=== PATIENT | male | born 1995 | race Hispanic/Latino ===

== ENCOUNTER 2020-06-26 07:59 | Inpatient (IN) | payer OTHER ==
[2020-06-26] MEDS ORDERED: SODIUM CHLORIDE 0.9% 1000 ML 1,000 ML IV ONE ×3 (08:24→12:10)
[2020-06-26 08:57] LABS: Mean Corpuscular HGB Conc 35 % (32-34); Mean Corpuscular Volume 86 fl (84-94); Red Blood Count 1.86 M/mm3 (3.65-5.03); Red Cell Distribution Width 17.2 % (13.2-15.2)
--- NOTE | 2020-06-26 08:59 | Emergency Department Report ---
ED Chest Pain HPI - General Chief Complaint: Chest Pain Stated Complaint: SVT Time Seen by Provider: 06/26/20 08:23 Source: EMS Mode of arrival: Stretcher Limitations: No Limitations - History of Present Illness Initial Comments: Patient is a 25-year-old male who is being brought in by paramedics from half-way who had episode of SVT prior to arrival. Patient is complaining of some palpitations and chest discomfort. Noted to have a heart rate in the 180s. Given 6 of adenosine which did seem to help the patient's symptoms. On his arrival heart rate is approximately 100. States he is has no chest pain or shortness of breath cough cold congestion fevers or chills. He has had SVT several times in the past and is on metoprolol currently. Additionally the patient states that over the last 3 weeks he has lost approximately 30 pounds. Patient states he was told something was going on with his liver but he does not have specific information. States he has had some dark-colored stools but is not sure there is been blood in his stool. - Related Data Allergies Allergy/AdvReac Type Severity Reaction Status Date / Time amoxicillin Allergy Unknown Verified 06/26/20 08:11 levetiracetam [From Keppra] Allergy Unknown Verified 06/26/20 08:11 sertraline [From Zoloft] Allergy Unknown Verified 06/26/20 08:11 Heart Score - HEART Score History: Slightly suspicious EKG: Normal Age: < 45 Risk factors: No known risk factors Troponin: < normal limit HEART Score: 0 ED Review of Systems ROS: Stated complaint: SVT Other details as noted in HPI Comment: All other systems reviewed and negative ED Past Medical Hx - Past Medical History Previous Medical History?: Yes Hx Seizures: Yes Additional medical history: Autism, SVT, Seizures - Social History Smoking Status: Never Smoker Substance Use Type: None ED Physical Exam - General Limitations: No Limitations General appearance: alert, in no apparent distress - Head Head exam: Present: atraumatic, normocephalic - Eye Eye exam: Present: normal appearance - ENT ENT exam: Present: mucous membranes moist - Neck Neck exam: Present: normal inspection - Respiratory Respiratory exam: Present: normal lung sounds bilaterally. Absent: respiratory distress, wheezes, rales, rhonchi - Cardiovascular Cardiovascular Exam: Present: regular rate, normal rhythm, normal heart sounds. Absent: systolic murmur, diastolic murmur, rubs, gallop - GI/Abdominal GI/Abdominal exam: Present: soft, normal bowel sounds. Absent: distended, tenderness, guarding, rebound - Rectal Rectal exam: Present: heme (-) stool - Extremities Exam Extremities exam: Present: normal inspection - Back Exam Back exam: Present: normal inspection - Neurological Exam Neurological exam: Present: alert, oriented X3 - Psychiatric Psychiatric exam: Present: normal affect, normal mood - Skin Skin exam: Present: warm, dry, intact, normal color. Absent: rash ED Course Vital Signs 06/26/20 06/26/20 06/26/20 08:04 08:06 08:12 Temperature 99 F Pulse Rate 110 H 112 H Respiratory 18 18 Rate Blood Pressure 103/64 Blood Pressure [Left] O2 Sat by Pulse 97 98 98 Oximetry 06/26/20 06/26/20 06/26/20 08:16 08:30 08:46 Temperature Pulse Rate 96 H 90 88 Respiratory 16 14 18 Rate Blood Pressure 103/64 103/66 93/41 Blood Pressure [Left] O2 Sat by Pulse 96 96 97 Oximetry 06/26/20 06/26/20 06/26/20 09:00 09:02 09:16 Temperature Pulse Rate 77 83 85 Respiratory 16 16 16 Rate Blood Pressure 89/51 98/63 Blood Pressure 89/53 [Left] O2 Sat by Pulse 100 98 99 Oximetry 06/26/20 06/26/20 06/26/20 09:30 09:46 10:00 Temperature Pulse Rate 80 74 85 Respiratory 15 14 10 L Rate Blood Pressure 103/70 105/63 111/60 Blood Pressure [Left] O2 Sat by Pulse 100 100 100 Oximetry 06/26/20 06/26/20 06/26/20 10:21 10:30 10:46 Temperature Pulse Rate 91 H 81 Respiratory 12 18 Rate Blood Pressure 105/61 105/61 108/63 Blood Pressure [Left] O2 Sat by Pulse 100 100 100 Oximetry 06/26/20 11:00 Temperature Pulse Rate 71 Respiratory 9 L Rate Blood Pressure 107/64 Blood Pressure [Left] O2 Sat by Pulse 89 Oximetry ED Medical Decision Making - Lab Data Result diagrams: 06/26/20 08:37 06/26/20 09:45 Laboratory Results - last 72 hr 06/26/20 06/26/20 06/26/20 08:37 08:37 09:26 WBC 3.5 L RBC 1.86 L Hgb 5.6 L* Hct 16.0 L* MCV 86 MCH 30 MCHC 35 H RDW 17.2 H Plt Count 75 L PT 28.5 H INR 2.67 H APTT 47.1 H Sodium 147 H Potassium 1.6 L* Chloride 128.4 H Carbon Dioxide 11 L Anion Gap 9 BUN 6 L Creatinine 0.3 L Estimated GFR > 60 BUN/Creatinine Ratio 20 Glucose 44 L POC Glucose Calcium 3.7 L* Total Bilirubin AST ALT Alkaline Phosphatase Troponin T < 0.010 Total Protein Albumin Albumin/Globulin Ratio Crossmatch 06/26/20 06/26/20 06/26/20 09:40 09:43 09:45 WBC RBC Hgb Hct MCV MCH MCHC RDW Plt Count PT INR APTT Sodium 139 D Potassium 3.8 D Chloride 108.3 H Carbon Dioxide 19 L D Anion Gap 16 BUN 12 Creatinine 0.9 D Estimated GFR > 60 BUN/Creatinine Ratio 13 Glucose 80 POC Glucose 65 L Calcium 8.8 D Total Bilirubin 0.80 AST 22 ALT 10 Alkaline Phosphatase 49 Troponin T Total Protein 6.1 L Albumin 4.0 Albumin/Globulin Ratio 1.9 Crossmatch See Detail - EKG Data -: EKG Interpreted by Pa EKG shows normal: sinus rhythm, axis, intervals, QRS complexes, ST-T waves Rate: normal - EKG Data Interpretation: normal EKG - Radiology Data Patient: WENDY ACUÑA MR#: [id number] : 1995 Acct:[id number] Age/Sex: 25 / M ADM Date: 06/26/20 Loc: ED Attending Dr: Ordering Physician: ALYSON HALE MD Date of Service: 06/26/20 Procedure(s): CT abdomen pelvis w con Accession Number(s): [id number] cc: ALYSON HALE MD CT OF THE ABDOMEN AND PELVIS WITH INTRAVENOUS CONTRAST INDICATION / CLINICAL INFORMATION: Abdominal pain. TECHNIQUE: The patient received 100 cc Omnipaque [address] scans at this location are performed using CT dose reduction for ALARA by means of automated exposure control. COMPARISON: None available. FINDINGS: ABDOMEN: The liver, spleen, gallbladder, bile ducts, pancreas, adrenal glands and kidneys are normal. There is no evidence of bowel obstruction, wall thickening or free air. No adenopathy is identified. The lung bases are clear. PELVIS: The distal ureters, urinary bladder, prostate gland and seminal vesicles are normal. A normal appendix is present and there is no evidence of diverticulitis. No abnormal mass or fluid collection is seen. I do not identify a hernia. No acute osseous abnormality is present. IMPRESSION: No acute abnormality is identified. Signer Name: Sanford Langford MD Signed: 06/26/2020 10:34 AM Workstation Name: [id number] Transcribed By: RT Dictated By: Sanford Langford MD Electronically Authenticated By: Sanford Langford MD Signed Date/Time: 06/26/20 1034 - Medical Decision Making Patient is a 25-year-old male who is presenting from nursing home with SVT. Patient also states that he was told he had some issue with his liver and that he has had a great deal of weight loss in the last several weeks. Patient SVT was corrected with adenosine prior to arrival. SVT was corrected with adenosine prior to arrival. Blood pressure was around 100 systolic and he was given IV fluids. Patient noted to have a low hemoglobin. His INR is elevated as well. Patient is not on blood thinners. Patient was Hemoccult negative. CT did not show any acute process. Patient had a unit of packed red blood cells ordered and will be admitted to the hospitalist service for further management. Critical care attestation.: If time is entered above; I have spent that time in minutes in the direct care of this critically ill patient, excluding procedure time. ED Disposition Clinical Impression: Symptomatic anemia, SVT (supraventricular tachycardia), Elevated INR Disposition: OP ADMIT IP TO THIS HOSP Is pt being admited?: Yes Does the pt Need Aspirin: No Condition: Stable Time of Disposition: 11:38
[2020-06-26 09:02] LABS: Platelet Count 75 K/mm3 (140-440)
[2020-06-26 09:03] LABS: Hemoglobin 5.6 gm/dl (11.8-15.2)
[2020-06-26] MEDS ORDERED: SODIUM CHLORIDE 0.9% 500 ML 500 ML IV ONE (09:09)
--- NOTE | 2020-06-26 09:17 | XRay Report ---
CHEST 1 VIEW 06/26/2020 8:10 AM INDICATION / CLINICAL INFORMATION: svt. COMPARISON: None available. FINDINGS: SUPPORT DEVICES: None. HEART / MEDIASTINUM: No significant abnormality. LUNGS / PLEURA: No significant pulmonary or pleural abnormality. No pneumothorax. ADDITIONAL FINDINGS: No significant additional findings. IMPRESSION: No acute abnormality. Signer Name: Chapo Cruz MD Signed: 06/26/2020 9:12 AM Workstation Name: [id number]
[2020-06-26 09:20] LABS: Blood Urea Nitrogen 6 mg/dL (9-20); Hemolysis Index 5
[2020-06-26 09:29] LABS: BUN/Creatinine Ratio 20
[2020-06-26 09:30] LABS: Calcium 3.7 mg/dL (8.4-10.2)
[2020-06-26] MEDS ORDERED: DEXTROSE 50% IN WATER (25GM) 50 ML SYRINGE IV ONE ×2 (09:40→09:43)
--- NOTE | 2020-06-26 10:19 | Electrocardiograph Report ---
[facility] Test Date: 2020-06-26 Test Time: 08:19:32 Pat Name: WENDY ACUÑA Department: Room: Gender: M Crew Caller: OMAR : 1995 Requested By: ALYSON HALE Order Number: [id number] Reading MD: Italo Damian Measurements Intervals [place] Rate: 92 P: 65 [place]: 166 QRS: 68 QRSD: 108 T: 6 QT: 347 QTc: 430 Interpretive Statements Sinus rhythm Probable lateral infarct, old No previous ECG available for comparison Electronically Signed On 06-26-2020 7:19:39 PDT by Italo Damian
[2020-06-26 10:27] LABS: INR 2.67 (0.87-1.13)
[2020-06-26 10:28] LABS: Partial Thromboplastin Time 47.1 Sec. (24.2-36.6)
[2020-06-26 10:30] LABS: Alanine Aminotransferase 10 units/L (7-56); BUN/Creatinine Ratio 13; Blood Urea Nitrogen 12 mg/dL (9-20); Calcium 8.8 mg/dL (8.4-10.2); Hemolysis Index 24
--- NOTE | 2020-06-26 10:39 | Cat Scan Report ---
CT OF THE ABDOMEN AND PELVIS WITH INTRAVENOUS CONTRAST INDICATION / CLINICAL INFORMATION: Abdominal pain. TECHNIQUE: The patient received 100 cc Omnipaque [address] scans at this location are performed using CT dose reduction for ALARA by means of automated exposure control. COMPARISON: None available. FINDINGS: ABDOMEN: The liver, spleen, gallbladder, bile ducts, pancreas, adrenal glands and kidneys are normal. There is no evidence of bowel obstruction, wall thickening or free air. No adenopathy is identified. The lung bases are clear. PELVIS: The distal ureters, urinary bladder, prostate gland and seminal vesicles are normal. A normal appendix is present and there is no evidence of diverticulitis. No abnormal mass or fluid collection is seen. I do not identify a hernia. No acute osseous abnormality is present. IMPRESSION: No acute abnormality is identified. Signer Name: Sanford Langford MD Signed: 06/26/2020 10:34 AM Workstation Name: [id number]
[2020-06-26] MEDS ORDERED: SODIUM CHLORIDE 0.9% 1000 ML 1,000 ML ONE (12:09)
[2020-06-26 14:13] LABS: Total Cells Counted 100
[2020-06-26 14:15] LABS: Platelet Estimate Consistent w Auto; RBC Morphology Normal
--- NOTE | 2020-06-26 14:44 | History and Physical Report ---
History of Present Illness Chief complaint: They brought me here History of present illness: 25 YO Male with Seizure Disorder, SVT, on the Autism spectrum presents to ED for evaluation. Pt reports " I was on the table and they brought me here". Patient has diminished cognition and provides minimal history. Patient history taken from EMS staff, ED staff, as well as the patient. The patient reports that he has "SVT", and was sent to the hospital. Patient also reports 30 pound weight loss in the past 1 month. EMS was notified by the [facility] staff and upon arrival the patient was found to be in SVT with a heart rate in the 180s. Patient treated with adenosine with normalization of patient heart rate. Patient transported to [facility] for further care and evaluation of the aforementioned symptoms. The patient was seen and evaluated in the emergency department. All lab and imaging studies reviewed. Patient found to have SVT with normalization of heart rate, as well as pancytopenia. Cardiology team consulted in ED. Hematology/oncology team consulted in ED as well. Patient denies fever, chills, chest pain, palpitation, productive cough, skin rash, recent ill contacts, or known exposure to COVID-19. No prior admission for review. All medication listed at time of admission has been reconciled. Past History Past Medical History: seizures, other (See HPI) Past Surgical History: No surgical history, Other (Reviewed) Social history: single. denies: smoking, alcohol abuse, prescription drug abuse Family history: no significant family history, other (Reviewed) Medications and Allergies Allergies Allergy/AdvReac Type Severity Reaction Status Date / Time amoxicillin Allergy Unknown Verified 06/26/20 08:11 levetiracetam [From Keppra] Allergy Unknown Verified 06/26/20 08:11 sertraline [From Zoloft] Allergy Unknown Verified 06/26/20 08:11 Home Medications Medication Instructions Recorded Confirmed Last Taken Type Docusate Sodium [Colace] 100 mg PO BID PRN 06/26/20 06/26/20 Unknown History Mag Citrate/Potassium Citrate 1 tab PO PRN PRN 06/26/20 06/26/20 Unknown History Metoprolol [Lopressor] 25 mg PO BID 06/26/20 06/26/20 Unknown History Omeprazole 20 mg PO DAILY 06/26/20 06/26/20 Unknown History Topiramate [Topamax] 50 mg PO DAILY 06/26/20 06/26/20 Unknown History lamoTRIgine [LaMICtal] 25 mg PO DAILY 06/26/20 06/26/20 Unknown History Review of Systems Constitutional: weight loss, no weight gain, no fever, no chills Ears, nose, mouth and throat: no ear pain, no ear discharge, no tinnitis, no d ecreased hearing Cardiovascular: no chest pain, no orthopnea, no palpitations, no rapid/irregular heart beat, no edema, no syncope Respiratory: no cough, no cough with sputum, no hemoptysis, no dyspnea on exertion Gastrointestinal: no abdominal pain, no nausea, no vomiting, no diarrhea, no constipation, no BRBPR, no melena Genitourinary Male: no hematuria, no flank pain, no discharge, no urinary h esitancy Rectal: no pain Musculoskeletal: no neck stiffness, no shooting arm pain, no arm numbness/tingling, no low back pain, no leg numbness/tingling Integumentary: no redness, no wounds, no jaundice, no blisters Neurological: no head injury, no transient paralysis, no weakness, no numbness, no seizures, no tremors, no lack of coordination Psychiatric: no memory loss, no change in sleep habits, no sleep disturbances, no hypersomnia, no change in appetite, no change in libido Endocrine: no cold intolerance, no excessive thirst, no polydipsia, no polyuria, no nocturia, no excessive sweating Hematologic/Lymphatic: no easy bruising, no easy bleeding, no lymphadenopathy, no lymphedema, no thrombophilia Allergic/Immunologic: no urticaria, no allergic rhinitis, no wheezing, no anaphylaxis, no angioedema Exam - Constitutional Vitals: Temp Pulse Resp BP Pulse Ox 99 F 54 L 15 118/78 100 06/26/20 08:06 06/26/20 14:30 06/26/20 14:30 06/26/20 14:30 06/26/20 14:30 General appearance: Present: mild distress, cachectic - EENT Eyes: Present: PERRL ENT: hearing intact, clear oral mucosa - Neck Neck: Present: supple, normal ROM - Respiratory Respiratory effort: normal Respiratory: bilateral: CTA - Cardiovascular Heart Sounds: Present: S1 & S2. Absent: rub, click - Extremities Extremities: pulses symmetrical, No edema Peripheral Pulses: within normal limits - Abdominal General gastrointestinal: Present: soft, non-tender, non-distended, normal bowel sounds Male genitourinary: Present: normal - Integumentary Integumentary: Present: clear, warm, dry - Musculoskeletal Musculoskeletal: gait normal, strength equal bilaterally - Psychiatric Psychiatric: cooperative - Neurologic Neurologic: CNII-XII intact, moves all extremities HEART Score - HEART Score EKG: Normal Age: < 45 Risk factors: No known risk factors Troponin: Troponin T < 0.010 ng/mL (0.00-0.029) 06/26/20 08:37 Troponin: < normal limit Results - Labs CBC & Chem 7: 06/26/20 15:40 06/26/20 09:45 Labs: Abnormal lab results 06/26/20 06/26/20 06/26/20 Range/Units 08:37 08:37 09:26 WBC 3.5 L (4.5-11.0) K/mm3 RBC 1.86 L (3.65-5.03) M/mm3 Hgb 5.6 L* (11.8-15.2) gm/dl Hct 16.0 L* (35.5-45.6) % MCHC 35 H (32-34) % RDW 17.2 H (13.2-15.2) % Plt Count 75 L (140-440) K/mm3 Seg Neuts % (Manual) 89.0 H (40.0-70.0) % Lymphocytes % (Manual) 11.0 L (13.4-35.0) % Lymphocytes # (Manual) 0.4 L (1.2-5.4) K/mm3 PT 28.5 H (12.2-14.9) Sec. INR 2.67 H (0.87-1.13) APTT 47.1 H (24.2-36.6) Sec. Fibrinogen (211-480) mg/dl Sodium 147 H (137-145) mmol/L Potassium 1.6 L* (3.6-5.0) mmol/L Chloride 128.4 H (98-107) mmol/L Carbon Dioxide 11 L (22-30) mmol/L BUN 6 L (9-20) mg/dL Creatinine 0.3 L (0.8-1.3) mg/dL Glucose 44 L (75-100) mg/dL POC Glucose (70-105) mg/dL Calcium 3.7 L* (8.4-10.2) mg/dL Total Protein (6.3-8.2) g/dL Crossmatch 06/26/20 06/26/20 06/26/20 Range/Units 09:40 09:43 09:45 WBC (4.5-11.0) K/mm3 RBC (3.65-5.03) M/mm3 Hgb (11.8-15.2) gm/dl Hct (35.5-45.6) % MCHC (32-34) % RDW (13.2-15.2) % Plt Count (140-440) K/mm3 Seg Neuts % (Manual) (40.0-70.0) % Lymphocytes % (Manual) (13.4-35.0) % Lymphocytes # (Manual) (1.2-5.4) K/mm3 PT (12.2-14.9) Sec. INR (0.87-1.13) APTT (24.2-36.6) Sec. Fibrinogen (211-480) mg/dl Sodium (137-145) mmol/L Potassium (3.6-5.0) mmol/L Chloride 108.3 H (98-107) mmol/L Carbon Dioxide 19 L D (22-30) mmol/L BUN (9-20) mg/dL Creatinine (0.8-1.3) mg/dL Glucose (75-100) mg/dL POC Glucose 65 L (70-105) mg/dL Calcium (8.4-10.2) mg/dL Total Protein 6.1 L (6.3-8.2) g/dL Crossmatch See Detail 06/26/20 Range/Units 13:52 WBC (4.5-11.0) K/mm3 RBC (3.65-5.03) M/mm3 Hgb (11.8-15.2) gm/dl Hct (35.5-45.6) % MCHC (32-34) % RDW (13.2-15.2) % Plt Count (140-440) K/mm3 Seg Neuts % (Manual) (40.0-70.0) % Lymphocytes % (Manual) (13.4-35.0) % Lymphocytes # (Manual) (1.2-5.4) K/mm3 PT (12.2-14.9) Sec. INR (0.87-1.13) APTT (24.2-36.6) Sec. Fibrinogen 203 L (211-480) mg/dl Sodium (137-145) mmol/L Potassium (3.6-5.0) mmol/L Chloride (98-107) mmol/L Carbon Dioxide (22-30) mmol/L BUN (9-20) mg/dL Creatinine (0.8-1.3) mg/dL Glucose (75-100) mg/dL POC Glucose (70-105) mg/dL Calcium (8.4-10.2) mg/dL Total Protein (6.3-8.2) g/dL Crossmatch Assessment and Plan - Patient Problems (1) SVT (supraventricular tachycardia) Current Visit: Yes Status: Acute Plan to address problem: Patient heart rate controlled status post treatment with adenosine therapy, continue medical management, supportive care. Cardiology team consulted in ED. Telemetry monitoring. (2) Pancytopenia Current Visit: Yes Status: Acute Plan to address problem: Supportive care, hematology oncology service consulted. Patient transfused with packed red blood cells, continue medical management. Fibrinogen level. (3) Elevated INR Current Visit: Yes Status: Acute Plan to address problem: Supportive care, hematology/oncology service consulted, continue medical management. (4) DVT prophylaxis Current Visit: Yes Status: Acute Plan to address problem: SCD to bilateral lower extremities while in bed, patient is ambulatory. Hold a nticoagulation due to thrombocytopenia
--- NOTE | 2020-06-26 15:15 | Hem/Onc Consultation ---
History of Present Illness - History of Present Illness heme consult televisit by vianca call be ER to eval pt with abn blood counts 25yo young man with autism, in custodial, eval last month with nl HCT and low plt count 80-100, nl coags now found to have cardiac arrythmia, found to have severe anemia, abn blood chemistries pt denies bleeding or bruising, no nosebleeds says he has lost a lot of weight EXAM: looks better than numbers not so talkative not jaundiced no obvious bruising Abd CT neg./normal DATA REVIEWED BELOW NOTE he has data from 05/2020 under a different mr number IMP: new pancytopenia, r/o acute leukemia abn coag studies with low fibrinogen, r/o APL leukemia PLAN: RBC transfusions, labs to include Retic, LDH, liver enzymes consider bone marrow biopsy head CT to r/o ICH Laboratory Last Values WBC 3.5 K/mm3 (4.5-11.0) L 06/26/20 08:37 Hgb 5.6 gm/dl (11.8-15.2) L* 06/26/20 08:37 Hct 16.0 % (35.5-45.6) L* 06/26/20 08:37 Plt Count 75 K/mm3 (140-440) L 06/26/20 08:37 Seg Neuts % (Manual) 89.0 % (40.0-70.0) H 06/26/20 08:37 PT 28.5 Sec. (12.2-14.9) H 06/26/20 09:26 INR 2.67 (0.87-1.13) H 06/26/20 09:26 APTT 47.1 Sec. (24.2-36.6) H 06/26/20 09:26 Fibrinogen 203 mg/dl (211-480) L 06/26/20 13:52 Creatinine 0.9 mg/dL (0.8-1.3) D 06/26/20 09:45 Total Bilirubin 0.80 mg/dL (0.1-1.2) 06/26/20 09:45 AST 22 units/L (5-40) 06/26/20 09:45 ALT 10 units/L (7-56) 06/26/20 09:45 Alkaline Phosphatase 49 units/L (35-129) 06/26/20 09:45 Crossmatch See Detail 06/26/20 09:43 Medications and Allergies Allergies Allergy/AdvReac Type Severity Reaction Status Date / Time amoxicillin Allergy Unknown Verified 06/26/20 08:11 levetiracetam [From Keppra] Allergy Unknown Verified 06/26/20 08:11 sertraline [From Zoloft] Allergy Unknown Verified 06/26/20 08:11 Home Medications Medication Instructions Recorded Confirmed Last Taken Type Docusate Sodium [Colace] 100 mg PO BID PRN 06/26/20 06/26/20 Unknown History Mag Citrate/Potassium Citrate 1 tab PO PRN PRN 06/26/20 06/26/20 Unknown History Metoprolol [Lopressor] 25 mg PO BID 06/26/20 06/26/20 Unknown History Omeprazole 20 mg PO DAILY 06/26/20 06/26/20 Unknown History Topiramate [Topamax] 50 mg PO DAILY 06/26/20 06/26/20 Unknown History lamoTRIgine [LaMICtal] 25 mg PO DAILY 06/26/20 06/26/20 Unknown History Exam - Constitutional Vitals: Last Vital Signs Temp 99 F 06/26/20 08:06 Pulse 58 L 06/26/20 15:02 Resp 16 06/26/20 15:02 BP 98/58 06/26/20 15:02 Pulse Ox 98 06/26/20 15:02 Results - Labs lab Results: Laboratory Results - last 24 hr 06/26/20 06/26/20 06/26/20 08:37 08:37 09:26 WBC 3.5 L RBC 1.86 L Hgb 5.6 L* Hct 16.0 L* MCV 86 MCH 30 MCHC 35 H RDW 17.2 H Plt Count 75 L Add Manual Diff Complete Total Counted 100 Seg Neuts % (Manual) 89.0 H Lymphocytes % (Manual) 11.0 L Nucleated RBC % Not Reportable Seg Neutrophils # Man 3.1 Band Neutrophils # 0.0 Lymphocytes # (Manual) 0.4 L Abs React Lymphs (Man) 0.0 Monocytes # (Manual) 0.0 Eosinophils # (Manual) 0.0 Basophils # (Manual) 0.0 Metamyelocytes # 0.0 Myelocytes # 0.0 Promyelocytes # 0.0 Blast Cells # 0.0 WBC Morphology Not Reportable Hypersegmented Neuts Not Reportable Hyposegmented Neuts Not Reportable Hypogranular Neuts Not Reportable Smudge Cells Not Reportable Toxic Granulation Not Reportable Toxic Vacuolation Not Reportable Dohle Bodies Not Reportable Pelger-Huet Anomaly Not Reportable Brenda Rods Not Reportable Platelet Estimate Consistent w auto Clumped Platelets Not Reportable Plt Clumps, EDTA Not Reportable Large Platelets Not Reportable Giant Platelets Not Reportable Platelet Satelliting Not Reportable Plt Morphology Comment Not Reportable RBC Morphology Normal Dimorphic RBCs Not Reportable Polychromasia Not Reportable Hypochromasia Not Reportable Poikilocytosis Not Reportable Anisocytosis Not Reportable Microcytosis Not Reportable Macrocytosis Not Reportable Spherocytes Not Reportable Pappenheimer Bodies Not Reportable Sickle Cells Not Reportable Target Cells Not Reportable Tear Drop Cells Not Reportable Ovalocytes Not Reportable Helmet Cells Not Reportable [place] Bodies Not Reportable [place] Rings Not Reportable Alba Cells Not Reportable Bite Cells Not Reportable Crenated Cell Not Reportable Elliptocytes Not Reportable Acanthocytes (Spur) Not Reportable Rouleaux Not Reportable Hemoglobin C Crystals Not Reportable Schistocytes Not Reportable Malaria parasites Not Reportable Shane Bodies Not Reportable Hem Pathologist Commnt No PT 28.5 H INR 2.67 H APTT 47.1 H Fibrinogen Sodium 147 H Potassium 1.6 L* Chloride 128.4 H Carbon Dioxide 11 L Anion Gap 9 BUN 6 L Creatinine 0.3 L Estimated GFR > 60 BUN/Creatinine Ratio 20 Glucose 44 L POC Glucose Calcium 3.7 L* Total Bilirubin AST ALT Alkaline Phosphatase Troponin T < 0.010 Total Protein Albumin Albumin/Globulin Ratio Blood Type Crossmatch 06/26/20 06/26/20 06/26/20 09:40 09:43 09:45 WBC RBC Hgb Hct MCV MCH MCHC RDW Plt Count Add Manual Diff Total Counted Seg Neuts % (Manual) Lymphocytes % (Manual) Nucleated RBC % Seg Neutrophils # Man Band Neutrophils # Lymphocytes # (Manual) Abs React Lymphs (Man) Monocytes # (Manual) Eosinophils # (Manual) Basophils # (Manual) Metamyelocytes # Myelocytes # Promyelocytes # Blast Cells # WBC Morphology Hypersegmented Neuts Hyposegmented Neuts Hypogranular Neuts Smudge Cells Toxic Granulation Toxic Vacuolation Dohle Bodies Pelger-Huet Anomaly Brenda Rods Platelet Estimate Clumped Platelets Plt Clumps, EDTA Large Platelets Giant Platelets Platelet Satelliting Plt Morphology Comment RBC Morphology Dimorphic RBCs Polychromasia Hypochromasia Poikilocytosis Anisocytosis Microcytosis Macrocytosis Spherocytes Pappenheimer Bodies Sickle Cells Target Cells Tear Drop Cells Ovalocytes Helmet Cells [place] Bodies [place] Rings Alba Cells Bite Cells Crenated Cell Elliptocytes Acanthocytes (Spur) Rouleaux Hemoglobin C Crystals Schistocytes Malaria parasites Shane Bodies Hem Pathologist Commnt PT INR APTT Fibrinogen Sodium 139 D Potassium 3.8 D Chloride 108.3 H Carbon Dioxide 19 L D Anion Gap 16 BUN 12 Creatinine 0.9 D Estimated GFR > 60 BUN/Creatinine Ratio 13 Glucose 80 POC Glucose 65 L Calcium 8.8 D Total Bilirubin 0.80 AST 22 ALT 10 Alkaline Phosphatase 49 Troponin T Total Protein 6.1 L Albumin 4.0 Albumin/Globulin Ratio 1.9 Blood Type B NEGATIVE Crossmatch See Detail 06/26/20 13:52 WBC RBC Hgb Hct MCV MCH MCHC RDW Plt Count Add Manual Diff Total Counted Seg Neuts % (Manual) Lymphocytes % (Manual) Nucleated RBC % Seg Neutrophils # Man Band Neutrophils # Lymphocytes # (Manual) Abs React Lymphs (Man) Monocytes # (Manual) Eosinophils # (Manual) Basophils # (Manual) Metamyelocytes # Myelocytes # Promyelocytes # Blast Cells # WBC Morphology Hypersegmented Neuts Hyposegmented Neuts Hypogranular Neuts Smudge Cells Toxic Granulation Toxic Vacuolation Dohle Bodies Pelger-Huet Anomaly Brenda Rods Platelet Estimate Clumped Platelets Plt Clumps, EDTA Large Platelets Giant Platelets Platelet Satelliting Plt Morphology Comment RBC Morphology Dimorphic RBCs Polychromasia Hypochromasia Poikilocytosis Anisocytosis Microcytosis Macrocytosis Spherocytes Pappenheimer Bodies Sickle Cells Target Cells Tear Drop Cells Ovalocytes Helmet Cells [place] Bodies [place] Rings Alba Cells Bite Cells Crenated Cell Elliptocytes Acanthocytes (Spur) Rouleaux Hemoglobin C Crystals Schistocytes Malaria parasites Shane Bodies Hem Pathologist Commnt PT INR APTT Fibrinogen 203 L Sodium Potassium Chloride Carbon Dioxide Anion Gap BUN Creatinine Estimated GFR BUN/Creatinine Ratio Glucose POC Glucose Calcium Total Bilirubin AST ALT Alkaline Phosphatase Troponin T Total Protein Albumin Albumin/Globulin Ratio Blood Type Crossmatch
[2020-06-26 15:23] LABS: Bilirubin,Urine NEG (Negative); Blood,Urine NEG (Negative); Color,Urine Yellow (Yellow); Mucus,Urine FEW /HPF; Protein,Urine <15 mg/dL mg/dL (Negative); Urobilinogen,Urine < 2.0 mg/dL (<2.0)
[2020-06-26 16:04] LABS: Basophils % (Auto) 0.2 % (0.0-1.8); Eosinophils % (Auto) 0.5 % (0.0-4.3); Hematocrit 40.1 % (35.5-45.6); Hemoglobin 14.2 gm/dl (11.8-15.2); Lymphocytes # (Auto) 2.3 K/mm3 (1.2-5.4); Lymphocytes % (Auto) 38.2 % (13.4-35.0); Mean Corpuscular HGB Conc 35 % (32-34); Mean Corpuscular Volume 85 fl (84-94); Monocytes # (Auto) 0.5 K/mm3 (0.0-0.8); Monocytes % (Auto) 7.4 % (0.0-7.3); Platelet Count 179 K/mm3 (140-440); Red Blood Count 4.71 M/mm3 (3.65-5.03); Red Cell Distribution Width 17.7 % (13.2-15.2)
[2020-06-26] MEDS ORDERED: ALBUTEROL 2.5 MG/3 ML NEBU IH PRN (16:42)
[2020-06-26] MEDS ORDERED: ACETAMINOPHEN 325 MG TAB PO PRN (16:42)
[2020-06-26] MEDS ORDERED: ONDANSETRON 4 MG/2 ML INJ IV PRN (16:42)
[2020-06-26] MEDS ORDERED: POTASSIUM CITRATE PO PRN (16:44)
[2020-06-26] MEDS ORDERED: DOCUSATE SODIUM 100 MG CAP PO PRN (16:44)
[2020-06-26] MEDS ORDERED: MAGNESIUM CITRATE PO PRN (16:44)
--- NOTE | 2020-06-26 17:00 | Cat Scan Report ---
CT head/brain wo con INDICATION: Acute leukemia.. TECHNIQUE: Routine CT head without contrast. All CT scans at this location are performed using CT dos e reduction for ALARA by means of automated exposure control. COMPARISON: 05/18/[address] FINDINGS: BRAIN / INTRACRANIAL CONTENTS: No acute hemorrhage, mass effect, midline shift, or hydrocephalus. No appreciable acute large territorial or lacunar infarct. No chronic infarct or focal atrophy. Normal b rain volume and ventricular/sulcal size for age. ORBITS: No significant abnormality of visualized orbits. SINUSES / MASTOIDS: No significant abnormality of visualized sinuses and mastoid air cells. ADDITIONAL FINDINGS: None. IMPRESSION: 1. No acute intracranial abnormality. No adverse change from the prior exam. Signer Name: Karthik Foster MD Signed: 06/26/2020 4:55 PM Workstation Name: [id number]
[2020-06-26 19:34] LABS: Basophils % (Auto) 0.2 % (0.0-1.8); Hematocrit 38.4 % (35.5-45.6); Hemoglobin 13.1 gm/dl (11.8-15.2); Lymphocytes # (Auto) 2.2 K/mm3 (1.2-5.4); Lymphocytes % (Auto) 45.5 % (13.4-35.0); Mean Corpuscular HGB Conc 34 % (32-34); Mean Corpuscular Volume 85 fl (84-94); Monocytes # (Auto) 0.4 K/mm3 (0.0-0.8); Monocytes % (Auto) 8.4 % (0.0-7.3); Platelet Count 157 K/mm3 (140-440); Red Blood Count 4.51 M/mm3 (3.65-5.03); Red Cell Distribution Width 17.9 % (13.2-15.2)
[2020-06-26 19:54] LABS: Alanine Aminotransferase 10 units/L (7-56); Blood Urea Nitrogen 8 mg/dL (9-20); Calcium 8.8 mg/dL (8.4-10.2); Hemolysis Index 10
[2020-06-26 19:59] LABS: BUN/Creatinine Ratio 11
[2020-06-27] MEDS ORDERED: LORazepam 2 MG/ML VIAL ONE (02:10)
[2020-06-27] MEDS: LORazepam 2 MG/ML VIAL IV PRN ×3 (03:00→20:20)
[2020-06-27] MEDS ORDERED: HALOPERIDOL LACTATE 5 MG/1 ML INJ IM ONE ×2 (03:30→21:11)
[2020-06-27] MEDS ORDERED: HALOPERIDOL LACTATE 5 MG/1 ML INJ ONE (03:31)
[2020-06-27] MEDS ORDERED: diazePAM 10 MG/2 ML SYRINGE IV ONE (03:47)
--- NOTE | 2020-06-27 04:26 | Event Note ---
Date: 06/27/20 PATIENT NOTED TO BE HAVING RECURRENT SEIZURE ATTACK DESPITE I.V ATIVAN , HE WAS ALSO HAVING AGITATION AND TACHYCARDIA. I.V HALDOL 5MG WAS GIVEN AND PATIENT'S SYMPTOM RESOLVED COMPLETELY. PATIENT WAS TRANSFERED TO ICU FOR CLOSER MORNITORING
[2020-06-27 05:42] LABS: Basophils % (Auto) 0.3 % (0.0-1.8); Eosinophils % (Auto) 0.4 % (0.0-4.3); Hematocrit 36.2 % (35.5-45.6); Hemoglobin 12.7 gm/dl (11.8-15.2); Lymphocytes # (Auto) 2.3 K/mm3 (1.2-5.4); Mean Corpuscular HGB Conc 35 % (32-34); Mean Corpuscular Volume 84 fl (84-94); Monocytes # (Auto) 0.5 K/mm3 (0.0-0.8); Monocytes % (Auto) 6.8 % (0.0-7.3); Platelet Count 142 K/mm3 (140-440); Red Blood Count 4.32 M/mm3 (3.65-5.03); Red Cell Distribution Width 18.1 % (13.2-15.2)
[2020-06-27 06:24] LABS: Alanine Aminotransferase 10 units/L (7-56); Albumin 3.9 g/dL (3.9-5); BUN/Creatinine Ratio 13; Blood Urea Nitrogen 9 mg/dL (9-20); Calcium 9.1 mg/dL (8.4-10.2); Hemolysis Index 4
--- NOTE | 2020-06-27 09:24 | Consultation ---
History of Present Illness - Reason for Consult Consult date: 06/27/20 Seizures Requesting physician: ANTON WARD - History of Present Illness 25 y/o male, transferred from tele after being admitted for SVT. Per covering IMS doc, patient having back to back seizures so transferred to ICU. He is currently not seizing and not on continuous drips. Stable on room air. Will answer most questions but very very sleepy. Guard at bedside. Per patient has been locked up for about 4 months. The chart states that he has a 30lb weight loss in the last month. There was concern for hematologic disorder so heme consulted and saw via tele medicine. Head CT was unremarkable. Per patient takes depakote but states the [facility] was not telling him what meds he was taking. Remainder is negative. Past History Past Medical History: seizures, other (See HPI) Past Surgical History: No surgical history, Other (Reviewed) Social history: single. denies: smoking, alcohol abuse, prescription drug abuse Family history: no significant family history, other (Reviewed) Medications and Allergies Allergies Allergy/AdvReac Type Severity Reaction Status Date / Time amoxicillin Allergy Unknown Verified 06/26/20 08:11 levetiracetam [From Keppra] Allergy Unknown Verified 06/26/20 08:11 sertraline [From Zoloft] Allergy Unknown Verified 06/26/20 08:11 Home Medications Medication Instructions Recorded Confirmed Last Taken Type Docusate Sodium [Colace] 100 mg PO BID PRN 06/26/20 06/26/20 Unknown History Mag Citrate/Potassium Citrate 1 tab PO PRN PRN 06/26/20 06/26/20 Unknown History Metoprolol [Lopressor] 25 mg PO BID 06/26/20 06/26/20 Unknown History Omeprazole 20 mg PO DAILY 06/26/20 06/26/20 Unknown History Topiramate [Topamax] 50 mg PO DAILY 06/26/20 06/26/20 Unknown History lamoTRIgine [LaMICtal] 25 mg PO DAILY 06/26/20 06/26/20 Unknown History Active Meds: Active Medications Acetaminophen (Acetaminophen 325 Mg Tab) 650 mg PO Q4H PRN PRN Reason: Pain MILD(1-3)/Fever >100.5/BROWN Albuterol (Albuterol 2.5 Mg/3 Ml Nebu) 2.5 mg IH Q4HRT PRN PRN Reason: Shortness Of Breath Docusate Sodium (Docusate Sodium 100 Mg Cap) 100 mg PO BID PRN PRN Reason: Constipation Lamotrigine (Lamotrigine 25 Mg Tab) 25 mg PO DAILY [facility] Lorazepam (Lorazepam 2 Mg/Ml Vial) 1 mg IV Q2HR PRN PRN Reason: seizures Last Admin: 06/27/20 03:37 Dose: 1 mg Documented by: Ondansetron HCl (Ondansetron 4 Mg/2 Ml Inj) 4 mg IV Q8H PRN PRN Reason: Nausea And Vomiting Pantoprazole Sodium (Pantoprazole 20 Mg Tab) 20 mg PO QDAY [facility] Sodium Chloride (Sodium Chloride 0.9% 10 Ml Flush Syringe) 10 ml IV BID BENJI Last Admin: 06/26/20 22:44 Dose: 10 ml Documented by: Sodium Chloride (Sodium Chloride 0.9% 10 Ml Flush Syringe) 10 ml IV PRN PRN PRN Reason: LINE FLUSH Topiramate (Topiramate Tab 25 Mg Tab) 50 mg PO DAILY [facility] Review of Systems ROS unobtainable: due to mental status Exam - Constitutional Vitals: Temp Pulse Resp BP Pulse Ox 98.9 F 48 L 14 98/55 100 06/27/20 08:00 06/27/20 09:01 06/27/20 09:01 06/27/20 09:01 06/27/20 09:01 General appearance: Present: no acute distress, well-nourished - EENT ENT: hearing intact - Neck Neck: Present: supple, normal ROM - Respiratory Respiratory effort: normal Respiratory: bilateral: CTA - Cardiovascular Rhythm: regular Heart Sounds: Present: S1 & S2 - Extremities Extremities: no ischemia, pulses intact Results - Labs CBC & Chem 7: 06/27/20 05:14 06/27/20 05:14 Labs: Abnormal lab results 06/26/20 06/26/20 06/26/20 Range/Units 08:37 08:37 09:26 MCHC (32-34) % RDW (13.2-15.2) % Lymph % (Auto) (13.4-35.0) % Young % (Auto) (0.0-7.3) % Seg Neuts % (Manual) 89.0 H (40.0-70.0) % Lymphocytes % (Manual) 11.0 L (13.4-35.0) % Lymphocytes # (Manual) 0.4 L (1.2-5.4) K/mm3 PT 28.5 H (12.2-14.9) Sec. INR 2.67 H (0.87-1.13) APTT 47.1 H (24.2-36.6) Sec. Fibrinogen (211-480) mg/dl Sodium 147 H (137-145) mmol/L Potassium 1.6 L* (3.6-5.0) mmol/L Chloride 128.4 H (98-107) mmol/L Carbon Dioxide 11 L (22-30) mmol/L BUN 6 L (9-20) mg/dL Creatinine 0.3 L (0.8-1.3) mg/dL Glucose 44 L (75-100) mg/dL POC Glucose (70-105) mg/dL Calcium 3.7 L* (8.4-10.2) mg/dL Lactate Dehydrogenase (91-180) units/L Total Protein (6.3-8.2) g/dL Ur Specific [place] (1.003-1.030) Urine WBC (Auto) (0.0-6.0) /HPF Crossmatch 06/26/20 06/26/20 06/26/20 Range/Units 09:40 09:43 09:45 MCHC (32-34) % RDW (13.2-15.2) % Lymph % (Auto) (13.4-35.0) % Young % (Auto) (0.0-7.3) % Seg Neuts % (Manual) (40.0-70.0) % Lymphocytes % (Manual) (13.4-35.0) % Lymphocytes # (Manual) (1.2-5.4) K/mm3 PT (12.2-14.9) Sec. INR (0.87-1.13) APTT (24.2-36.6) Sec. Fibrinogen (211-480) mg/dl Sodium (137-145) mmol/L Potassium (3.6-5.0) mmol/L Chloride 108.3 H (98-107) mmol/L Carbon Dioxide 19 L D (22-30) mmol/L BUN (9-20) mg/dL Creatinine (0.8-1.3) mg/dL Glucose (75-100) mg/dL POC Glucose 65 L (70-105) mg/dL Calcium (8.4-10.2) mg/dL Lactate Dehydrogenase (91-180) units/L Total Protein 6.1 L (6.3-8.2) g/dL Ur Specific [place] (1.003-1.030) Urine WBC (Auto) (0.0-6.0) /HPF Crossmatch See Detail 06/26/20 06/26/20 06/26/20 Range/Units 12:32 13:52 15:40 MCHC 35 H (32-34) % RDW 17.7 H (13.2-15.2) % Lymph % (Auto) 38.2 H (13.4-35.0) % Young % (Auto) 7.4 H (0.0-7.3) % Seg Neuts % (Manual) (40.0-70.0) % Lymphocytes % (Manual) (13.4-35.0) % Lymphocytes # (Manual) (1.2-5.4) K/mm3 PT (12.2-14.9) Sec. INR (0.87-1.13) APTT (24.2-36.6) Sec. Fibrinogen 203 L (211-480) mg/dl Sodium (137-145) mmol/L Potassium (3.6-5.0) mmol/L Chloride (98-107) mmol/L Carbon Dioxide (22-30) mmol/L BUN (9-20) mg/dL Creatinine (0.8-1.3) mg/dL Glucose (75-100) mg/dL POC Glucose (70-105) mg/dL Calcium (8.4-10.2) mg/dL Lactate Dehydrogenase (91-180) units/L Total Protein (6.3-8.2) g/dL Ur Specific [place] 1.045 H (1.003-1.030) Urine WBC (Auto) 36.0 H (0.0-6.0) /HPF Crossmatch 06/26/20 06/26/20 06/26/20 Range/Units 15:40 19:24 19:24 MCHC (32-34) % RDW 17.9 H (13.2-15.2) % Lymph % (Auto) 45.5 H (13.4-35.0) % Young % (Auto) 8.4 H (0.0-7.3) % Seg Neuts % (Manual) (40.0-70.0) % Lymphocytes % (Manual) (13.4-35.0) % Lymphocytes # (Manual) (1.2-5.4) K/mm3 PT (12.2-14.9) Sec. INR (0.87-1.13) APTT (24.2-36.6) Sec. Fibrinogen (211-480) mg/dl Sodium (137-145) mmol/L Potassium (3.6-5.0) mmol/L Chloride 108.9 H (98-107) mmol/L Carbon Dioxide 20 L (22-30) mmol/L BUN 8 L (9-20) mg/dL Creatinine 0.7 L (0.8-1.3) mg/dL Glucose 115 H (75-100) mg/dL POC Glucose (70-105) mg/dL Calcium (8.4-10.2) mg/dL Lactate Dehydrogenase 525 H (91-180) units/L Total Protein 5.6 L (6.3-8.2) g/dL Ur Specific [place] (1.003-1.030) Urine WBC (Auto) (0.0-6.0) /HPF Crossmatch 06/27/20 06/27/20 06/27/20 Range/Units 05:14 05:14 05:14 MCHC 35 H (32-34) % RDW 18.1 H (13.2-15.2) % Lymph % (Auto) (13.4-35.0) % Young % (Auto) (0.0-7.3) % Seg Neuts % (Manual) (40.0-70.0) % Lymphocytes % (Manual) (13.4-35.0) % Lymphocytes # (Manual) (1.2-5.4) K/mm3 PT (12.2-14.9) Sec. INR (0.87-1.13) APTT (24.2-36.6) Sec. Fibrinogen 209 L (211-480) mg/dl Sodium (137-145) mmol/L Potassium (3.6-5.0) mmol/L Chloride 110.6 H (98-107) mmol/L Carbon Dioxide (22-30) mmol/L BUN (9-20) mg/dL Creatinine 0.7 L (0.8-1.3) mg/dL Glucose (75-100) mg/dL POC Glucose (70-105) mg/dL Calcium (8.4-10.2) mg/dL Lactate Dehydrogenase (91-180) units/L Total Protein 5.6 L (6.3-8.2) g/dL Ur Specific [place] (1.003-1.030) Urine WBC (Auto) (0.0-6.0) /HPF Crossmatch - Imaging and Cardiology Chest x-ray: image reviewed (normal, no evidence of acute disease) Assessment and Plan 25 y/o male admitted with sVT and prior history of seizures with seizures on floor. 1. Some descrepancy as to whether meds were given or not for maintenance therapy for seizures. Will restart now. OK with PRN ativan when needed. Currently mental state is stable so no acute indication for EEG. 2. Continue telemetry monitoring. Follow up electrolytes and thyroid studies. 3. Will monitor until early afternoon. If stable, transfer back to [facility].
[2020-06-27] MEDS: TOPIRAMATE TAB 25 MG TAB PO SCH (09:25)
[2020-06-27] MEDS: PANTOPRAZOLE 20 MG TAB PO SCH (09:25)
[2020-06-27] MEDS: lamoTRIgine 25 MG TAB PO SCH (09:26)
[2020-06-27] MEDS ORDERED: NON-FORMULARY EACH (Omeprazole [Omeprazole] 20 MG Capsule.Dr) PO SCH (10:00)
[2020-06-27] MEDS ORDERED: NON-FORMULARY EACH (Topiramate [Topamax] 50 MG Tablet) PO SCH (10:00)
[2020-06-27] MEDS ORDERED: LACTATED RINGERS 1,000 ML IV SCH (10:00)
--- NOTE | 2020-06-27 13:18 | Event Note ---
Date: 06/27/20 Patient was seen and evaluated this morning. Vital signs and labs were noted. Patient admitted for pseudoseizures. 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 Received and reviewed his chart, His BP was low and is on NS. patient will be discharged tomorrow. Discussed With CHRISTIAN Mendoza.
--- NOTE | 2020-06-27 15:08 | Progress Note ---
Assessment and Plan Assessment and plan: SVT -S/p adenosine -Noted to be in sinus rhythm with periods of sinus bradycardia with sleep -Telemetry monitoring -Cardiology consulted, appreciate recommendations -Hold home beta-charlie in setting of sinus bradycardia with sleep and hypotension -TSH pending Psychogenic nonepileptic seizures (per OSH records) -Patient received EEG monitoring in 2016, 2019 and thousand 20 and was not noted to have status epilepticus -Per OSH [place] neurology diagnosed patient with PNES and recommended no AEDs -Supportive care Elevated INR -Trend INR -Intervene as needed Hyperchloremia Trend BMP Hypotension -S/p 2 L LR bolus -Blood pressure monitoring per protocol -Hold home beta-charlie in setting of hypotension Reactive attachment disorder per OSH records -Resume home Topamax -Supportive care ? Autism spectrum -Supportive care Pancytopenia, resolved -Patient's initial labs showed pancytopenia with WBC 3.5, hemoglobin 5.6, hematocrit 16, platelet count 75 and the patient was typed and crossed for blood however never received his transfusion -Next CBC shows WBC 6.1, hemoglobin 14.2, hematocrit 40.1, platelet 179 -Hematology/oncology consulted emergency department -Per heme-onc plan: RBC transfusion, reticulocyte, LDH, LFTs, consider bone marrow biopsy, repeat CT head to rule out ICH which was negative DVT/GI prophylaxis: PPI, SCDs to bilateral lower extremities while in bed Disposition: Transfer to floor with telemetry monitoring History Interval history: This is a 25-year-old male with psychogenic nonepileptic seizures, SVT, reactive attachment disorder and on the autism spectrum who presented to the ED on 06/26 for SVT and self-reported 30 pound weight loss in the past month. According to documentation patient was given adenosine in the halfway informatory. Upon arrival to the emergency department patient was found to have SVT with normalization of heart rate as well as pancytopenia. Cardiology and hematology/oncology were consulted the emergency department. 06/27: Patient was noted to have seizures and was given Ativan for seizure which lasted close to 13 minutes then at about 0300 patient was noted to have another seizure for 5 minutes Ativan was given again and then around 0330 patient was noted to have another seizure and a code met was called. Patient received Haldol at this time and was transferred to the unit. SVT Pancytopenia, resolved Elevated INR Psychogenic nonepileptic seizures (per OSH records) Autism spectrum Hyperchloremia Hypotension Hospitalist Physical - Constitutional Vitals: Temp Pulse Resp BP Pulse Ox 97.4 F L 48 L 16 101/38 99 06/27/20 11:57 06/27/20 13:31 06/27/20 13:31 06/27/20 13:31 06/27/20 13:31 General appearance: Present: no acute distress, well-nourished - EENT Eyes: Present: PERRL ENT: hearing intact, clear oral mucosa - Neck Neck: Present: normal ROM - Respiratory Respiratory effort: normal Respiratory: bilateral: CTA - Cardiovascular Rhythm: regular Heart Sounds: Present: S1 & S2. Absent: systolic murmur, diastolic murmur - Extremities Extremities: no ischemia, pulses intact, pulses symmetrical, No edema, normal temperature, normal color, Full ROM Peripheral Pulses: within normal limits - Abdominal General gastrointestinal: soft, non-tender, non-distended, normal bowel sounds - Integumentary Integumentary: Present: clear, warm, dry - Psychiatric Psychiatric: cooperative - Neurologic Neurologic: CNII-XII intact - Allied Health Allied health notes reviewed: nursing HEART Score - HEART Score EKG: Normal Age: < 45 Risk factors: No known risk factors Troponin: Troponin T < 0.010 ng/mL (0.00-0.029) 06/26/20 08:37 Troponin: < normal limit Results - Labs CBC & Chem 7: 06/27/20 05:14 06/27/20 05:14 Labs: Laboratory Last Values WBC 7.5 K/mm3 (4.5-11.0) 06/27/20 05:14 RBC 4.32 M/mm3 (3.65-5.03) 06/27/20 05:14 Hgb 12.7 gm/dl (11.8-15.2) 06/27/20 05:14 Hct 36.2 % (35.5-45.6) 06/27/20 05:14 MCV 84 fl (84-94) 06/27/20 05:14 MCH 30 pg (28-32) 06/27/20 05:14 MCHC 35 % (32-34) H 06/27/20 05:14 RDW 18.1 % (13.2-15.2) H 06/27/20 05:14 Plt Count 142 K/mm3 (140-440) 06/27/20 05:14 Lymph % (Auto) 31.0 % (13.4-35.0) 06/27/20 05:14 [place] % (Auto) 6.8 % (0.0-7.3) 06/27/20 05:14 Eos % (Auto) 0.4 % (0.0-4.3) 06/27/20 05:14 Baso % (Auto) 0.3 % (0.0-1.8) 06/27/20 05:14 Lymph # (Auto) 2.3 K/mm3 (1.2-5.4) 06/27/20 05:14 [place] # (Auto) 0.5 K/mm3 (0.0-0.8) 06/27/20 05:14 Eos # (Auto) 0.0 K/mm3 (0.0-0.4) 06/27/20 05:14 Baso # (Auto) 0.0 K/mm3 (0.0-0.1) 06/27/20 05:14 Add Manual Diff Complete 06/26/20 08:37 Total Counted 100 06/26/20 08:37 Seg Neutrophils % 61.5 % (40.0-70.0) 06/27/20 05:14 Seg Neuts % (Manual) 89.0 % (40.0-70.0) H 06/26/20 08:37 Lymphocytes % (Manual) 11.0 % (13.4-35.0) L 06/26/20 08:37 Nucleated RBC % Not Reportable 06/26/20 08:37 Seg Neutrophils # 4.6 K/mm3 (1.8-7.7) 06/27/20 05:14 Seg Neutrophils # Man 3.1 K/mm3 (1.8-7.7) 06/26/20 08:37 Band Neutrophils # 0.0 K/mm3 06/26/20 08:37 Lymphocytes # (Manual) 0.4 K/mm3 (1.2-5.4) L 06/26/20 08:37 Abs React Lymphs (Man) 0.0 K/mm3 06/26/20 08:37 Monocytes # (Manual) 0.0 K/mm3 (0.0-0.8) 06/26/20 08:37 Eosinophils # (Manual) 0.0 K/mm3 (0.0-0.4) 06/26/20 08:37 Basophils # (Manual) 0.0 K/mm3 (0.0-0.1) 06/26/20 08:37 Metamyelocytes # 0.0 K/mm3 06/26/20 08:37 Myelocytes # 0.0 K/mm3 06/26/20 08:37 Promyelocytes # 0.0 K/mm3 06/26/20 08:37 Blast Cells # 0.0 K/mm3 06/26/20 08:37 WBC Morphology Not Reportable 06/26/20 08:37 Hypersegmented Neuts Not Reportable 06/26/20 08:37 Hyposegmented Neuts Not Reportable 06/26/20 08:37 Hypogranular Neuts Not Reportable 06/26/20 08:37 Smudge Cells Not Reportable 06/26/20 08:37 Toxic Granulation Not Reportable 06/26/20 08:37 Toxic Vacuolation Not Reportable 06/26/20 08:37 Dohle Bodies Not Reportable 06/26/20 08:37 Pelger-Huet Anomaly Not Reportable 06/26/20 08:37 Brenda Rods Not Reportable 06/26/20 08:37 Platelet Estimate Consistent w auto 06/26/20 08:37 Clumped Platelets Not Reportable 06/26/20 08:37 Plt Clumps, EDTA Not Reportable 06/26/20 08:37 Large Platelets Not Reportable 06/26/20 08:37 Giant Platelets Not Reportable 06/26/20 08:37 Platelet Satelliting Not Reportable 06/26/20 08:37 Plt Morphology Comment Not Reportable 06/26/20 08:37 RBC Morphology Normal 06/26/20 08:37 Dimorphic RBCs Not Reportable 06/26/20 08:37 Polychromasia Not Reportable 06/26/20 08:37 Hypochromasia Not Reportable 06/26/20 08:37 Poikilocytosis Not Reportable 06/26/20 08:37 Anisocytosis Not Reportable 06/26/20 08:37 Microcytosis Not Reportable 06/26/20 08:37 Macrocytosis Not Reportable 06/26/20 08:37 Spherocytes Not Reportable 06/26/20 08:37 Pappenheimer Bodies Not Reportable 06/26/20 08:37 Sickle Cells Not Reportable 06/26/20 08:37 Target Cells Not Reportable 06/26/20 08:37 Tear Drop Cells Not Reportable 06/26/20 08:37 Ovalocytes Not Reportable 06/26/20 08:37 Helmet Cells Not Reportable 06/26/20 08:37 [place] Bodies Not Reportable 06/26/20 08:37 [place] Rings Not Reportable 06/26/20 08:37 Alba Cells Not Reportable 06/26/20 08:37 Bite Cells Not Reportable 06/26/20 08:37 Crenated Cell Not Reportable 06/26/20 08:37 Elliptocytes Not Reportable 06/26/20 08:37 Acanthocytes (Spur) Not Reportable 06/26/20 08:37 Rouleaux Not Reportable 06/26/20 08:37 Hemoglobin C Crystals Not Reportable 06/26/20 08:37 Schistocytes Not Reportable 06/26/20 08:37 Malaria parasites Not Reportable 06/26/20 08:37 Percent Retic 1.11 % (0.78-2.58) 06/26/20 15:40 Shane Bodies Not Reportable 06/26/20 08:37 Hem Pathologist Commnt No 06/26/20 08:37 PT 28.5 Sec. (12.2-14.9) H 06/26/20 09:26 INR 2.67 (0.87-1.13) H 06/26/20 09:26 APTT 47.1 Sec. (24.2-36.6) H 06/26/20 09:26 Fibrinogen 209 mg/dl (211-480) L 06/27/20 05:14 Sodium 141 mmol/L (137-145) 06/27/20 05:14 Potassium 3.8 mmol/L (3.6-5.0) 06/27/20 05:14 Chloride 110.6 mmol/L (98-107) H 06/27/20 05:14 Carbon Dioxide 23 mmol/L (22-30) 06/27/20 05:14 Anion Gap 11 mmol/L 06/27/20 05:14 BUN 9 mg/dL (9-20) 06/27/20 05:14 Creatinine 0.7 mg/dL (0.8-1.3) L 06/27/20 05:14 Estimated GFR > 60 ml/min 06/27/20 05:14 BUN/Creatinine Ratio 13 % 06/27/20 05:14 Glucose 85 mg/dL (75-100) 06/27/20 05:14 POC Glucose 65 mg/dL (70-105) L 06/26/20 09:40 Calcium 9.1 mg/dL (8.4-10.2) 06/27/20 05:14 Total Bilirubin 0.90 mg/dL (0.1-1.2) 06/27/20 05:14 AST 26 units/L (5-40) 06/27/20 05:14 ALT 10 units/L (7-56) 06/27/20 05:14 Alkaline Phosphatase 45 units/L (35-129) 06/27/20 05:14 Lactate Dehydrogenase 525 units/L (91-180) H 06/26/20 15:40 Troponin T < 0.010 ng/mL (0.00-0.029) 06/26/20 08:37 Total Protein 5.6 g/dL (6.3-8.2) L 06/27/20 05:14 Albumin 3.9 g/dL (3.9-5) 06/27/20 05:14 Albumin/Globulin Ratio 2.3 % 06/27/20 05:14 Urine Color Yellow (Yellow) 06/26/20 12:32 Urine Turbidity Cloudy (Clear) 06/26/20 12:32 Urine pH 7.0 (5.0-7.0) 06/26/20 12:32 Ur Specific [place] 1.045 (1.003-1.030) H 06/26/20 12:32 Urine Protein <15 mg/dl mg/dL (Negative) 06/26/20 12:32 Urine Glucose (UA) 50 mg/dL (Negative) 06/26/20 12:32 Urine Ketones Neg mg/dL (Negative) 06/26/20 12:32 Urine Blood Neg (Negative) 06/26/20 12:32 Urine Nitrite Neg (Negative) 06/26/20 12:32 Urine Bilirubin Neg (Negative) 06/26/20 12:32 Urine Urobilinogen < 2.0 mg/dL (<2.0) 06/26/20 12:32 Ur Leukocyte Esterase Neg (Negative) 06/26/20 12:32 Urine WBC (Auto) 36.0 /HPF (0.0-6.0) H 06/26/20 12:32 Urine RBC (Auto) 46.0 /HPF (0.0-6.0) 06/26/20 12:32 Urine WBC Clumps 3+ /HPF 06/26/20 12:32 Urine Mucus Few /HPF 06/26/20 12:32 Urine Yeast (Budding) 2+ /HPF 06/26/20 12:32 Coronavirus (PCR) Negative (Negative) 06/27/20 10:09 Blood Type B NEGATIVE 06/26/20 09:43 Antibody Screen Positive 06/26/20 09:43 Antibody Identification Anti-C Anti-D (Actively Aquired) Anti-E Warm Auto Antibody 06/26/20 09:43 Antibody Identification Anti-C Anti-D (Actively Aquired) Anti-E Warm Auto Antibody 06/26/20 09:43 Antibody Identification Anti-C Anti-D (Actively Aquired) Anti-E Warm Auto Antibody 06/26/20 09:43 Antibody Identification Anti-C Anti-D (Actively Aquired) Anti-E Warm Auto Antibody 06/26/20 09:43 Crossmatch See Detail 06/26/20 09:43 Martinez/IV: Voiding Method Urinal Active Medications - Current Medications Current Medications: Generic Name Dose Route Start Last Admin Trade Name Freq PRN Reason Stop Dose Admin Acetaminophen 650 mg 06/26/20 16:42 Acetaminophen 325 Mg Tab PO Q4H PRN Pain MILD(1-3)/Fever >100.5/BROWN Albuterol 2.5 mg 06/26/20 16:42 Albuterol 2.5 Mg/3 Ml Nebu IH Q4HRT PRN Shortness Of Breath Docusate Sodium 100 mg 06/26/20 16:44 Docusate Sodium 100 Mg Cap PO BID PRN Constipation Lamotrigine 25 mg 06/27/20 10:00 06/27/20 09:26 Lamotrigine 25 Mg Tab PO 25 mg DAILY BENJI Administration Lorazepam 1 mg 06/27/20 02:16 06/27/20 03:37 Lorazepam 2 Mg/Ml Vial IV 1 mg Q2HR PRN Administration seizures Ondansetron HCl 4 mg 06/26/20 16:42 Ondansetron 4 Mg/2 Ml Inj IV Q8H PRN Nausea And Vomiting Pantoprazole Sodium 20 mg 06/27/20 10:00 06/27/20 09:25 Pantoprazole 20 Mg Tab PO 20 mg QDAY BENJI Administration Sodium Chloride 10 ml 06/26/20 22:00 06/27/20 09:26 Sodium Chloride 0.9% 10 Ml Flush Syringe IV 10 ml BID BENJI Administration Sodium Chloride 10 ml 06/26/20 16:42 Sodium Chloride 0.9% 10 Ml Flush Syringe IV PRN PRN LINE FLUSH Topiramate 50 mg 06/27/20 10:00 06/27/20 09:25 Topiramate Tab 25 Mg Tab PO 50 mg DAILY BENJI Administration Nutrition/Malnutrition Assess - Dietary Evaluation Nutrition/Malnutrition Findings: Nutrition Notes Start: 06/27/20 11:14 Freq: Status: Active Protocol: Document 06/27/20 11:14 (Rec: 06/27/20 11:23 [email or web address]) Nutrition Notes Need for Assessment generated from: chief controller tower,MST Initial or Follow up Assessment Other Pertinent Diagnosis seizure, autism, SVT, pancytopenia Current Diet Cardiac Labs/Tests Cr 0.7 Pertinent Medications Reviewed Height 6 ft 4 in Weight 88.451 kg Usual Body Weight 102.27 kg [place] Body Weight (kg) 91.81 BMI 23.7 Weight change and time frame 14% wt loss in one month Subjective/Other Information RN screen for MST. Per chart, pt has lost 30lbs in one month . has ordered PTH lab. Pt did not wake at time of visit. Per darin, pt is in and out of sleep and struggles to stay awake. Pt ate 75% of breakfast. Burn Absent Trauma Absent Minimum of two criteria No Interpretation of Weight Loss (severe) >5% in 1 month #1 Nutrition Diagnosis Predicted suboptimal energy intake Etiology unknown, possible hyperthyroidism As Evidenced by Signs and Symptoms pt with 30 lb wt loss in 1 mo Is patient on ventilator? No Is Patient Ambulatory and/or Out of Bed Yes REE-([facility]-ambulatory/OOB) [ 2568.813 [id number]] Calculation Used for Recommendations [facility] Additional Notes Protein: 71-88g (0.8-1g/kg) Fluid: 1 ml/kcal Nutrition Intervention Change Diet Order: Continue Add Supplement/Snack (indicate name/kcal Ensure Enlive Daily /protein ) Provides kCal: 350 Provides Protein (gm) 20 Goal #1 Meet at least 80% of protein and energy needs via PO and ONS Anticipated Discharge Needs: Cardaic with ONS PRN Follow-Up By: 06/28/20 Additional Comments FU for MST assessment
--- NOTE | 2020-06-27 15:15 | Consultation ---
History of Present Illness Consult date: 06/27/20 History of present illness: istory of present illness: 25 YO Male with Seizure Disorder, SVT, on the Autism spectrum presents to ED for evaluation. Pt reports " I was on the table and they brought me here". Patient has diminished cognition and provides minimal history. The patient reports that symptoms worsened since stopping medications . P Past History Past Medical History: seizures, other (See HPI) Past Surgical History: No surgical history, Other (Reviewed) Social history: single. denies: smoking, alcohol abuse, prescription drug abuse Family history: no significant family history, other (Reviewed) Medications and Allergies Allergies Allergy/AdvReac Type Severity Reaction Status Date / Time amoxicillin Allergy Unknown Verified 06/26/20 08:11 levetiracetam [From Keppra] Allergy Unknown Verified 06/26/20 08:11 sertraline [From Zoloft] Allergy Unknown Verified 06/26/20 08:11 Home Medications Medication Instructions Recorded Confirmed Last Taken Type Docusate Sodium [Colace] 100 mg PO BID PRN 06/26/20 06/26/20 Unknown History Mag Citrate/Potassium Citrate 1 tab PO PRN PRN 06/26/20 06/26/20 Unknown History Metoprolol [Lopressor] 25 mg PO BID 06/26/20 06/26/20 Unknown History Omeprazole 20 mg PO DAILY 06/26/20 06/26/20 Unknown History Topiramate [Topamax] 50 mg PO DAILY 06/26/20 06/26/20 Unknown History lamoTRIgine [LaMICtal] 25 mg PO DAILY 06/26/20 06/26/20 Unknown History Active Meds: Active Medications Acetaminophen (Acetaminophen 325 Mg Tab) 650 mg PO Q4H PRN PRN Reason: Pain MILD(1-3)/Fever >100.5/BROWN Albuterol (Albuterol 2.5 Mg/3 Ml Nebu) 2.5 mg IH Q4HRT PRN PRN Reason: Shortness Of Breath Docusate Sodium (Docusate Sodium 100 Mg Cap) 100 mg PO BID PRN PRN Reason: Constipation Lamotrigine (Lamotrigine 25 Mg Tab) 25 mg PO DAILY BENJI Last Admin: 06/27/20 09:26 Dose: 25 mg Documented by: Lorazepam (Lorazepam 2 Mg/Ml Vial) 1 mg IV Q2HR PRN PRN Reason: seizures Last Admin: 06/27/20 03:37 Dose: 1 mg Documented by: Ondansetron HCl (Ondansetron 4 Mg/2 Ml Inj) 4 mg IV Q8H PRN PRN Reason: Nausea And Vomiting Pantoprazole Sodium (Pantoprazole 20 Mg Tab) 20 mg PO QDAY [facility] Last Admin: 06/27/20 09:25 Dose: 20 mg Documented by: Sodium Chloride (Sodium Chloride 0.9% 10 Ml Flush Syringe) 10 ml IV BID [facility] Last Admin: 06/27/20 09:26 Dose: 10 ml Documented by: Sodium Chloride (Sodium Chloride 0.9% 10 Ml Flush Syringe) 10 ml IV PRN PRN PRN Reason: LINE FLUSH Topiramate (Topiramate Tab 25 Mg Tab) 50 mg PO DAILY [facility] Last Admin: 06/27/20 09:25 Dose: 50 mg Documented by: Physical Examination - Vital Signs Vital Signs: Vital Signs Pulse Ox 97 06/26/20 08:04 - Physical Exam Narrative exam: The patient is alert , has ? dysarthria , moves all 4 extremities . Results - Laboratory Findings CBC and BMP: 06/27/20 05:14 06/27/20 05:14 Abnormal Lab Findings: Abnormal Labs 06/26/20 06/26/20 06/26/20 08:37 08:37 09:26 WBC 3.5 L RBC 1.86 L Hgb 5.6 L* Hct 16.0 L* MCHC 35 H RDW 17.2 H Plt Count 75 L Lymph % (Auto) [place] % (Auto) Seg Neuts % (Manual) 89.0 H Lymphocytes % (Manual) 11.0 L Lymphocytes # (Manual) 0.4 L PT 28.5 H INR 2.67 H APTT 47.1 H Fibrinogen Sodium 147 H Potassium 1.6 L* Chloride 128.4 H Carbon Dioxide 11 L BUN 6 L Creatinine 0.3 L Glucose 44 L POC Glucose Calcium 3.7 L* Lactate Dehydrogenase Total Protein Ur Specific [place] Urine WBC (Auto) Crossmatch 06/26/20 06/26/20 06/26/20 09:40 09:43 09:45 WBC RBC Hgb Hct MCHC RDW Plt Count Lymph % (Auto) [place] % (Auto) Seg Neuts % (Manual) Lymphocytes % (Manual) Lymphocytes # (Manual) PT INR APTT Fibrinogen Sodium Potassium Chloride 108.3 H Carbon Dioxide 19 L D BUN Creatinine Glucose POC Glucose 65 L Calcium Lactate Dehydrogenase Total Protein 6.1 L Ur Specific [place] Urine WBC (Auto) Crossmatch See Detail 06/26/20 06/26/20 06/26/20 12:32 13:52 15:40 WBC RBC Hgb Hct MCHC 35 H RDW 17.7 H Plt Count Lymph % (Auto) 38.2 H [place] % (Auto) 7.4 H Seg Neuts % (Manual) Lymphocytes % (Manual) Lymphocytes # (Manual) PT INR APTT Fibrinogen 203 L Sodium Potassium Chloride Carbon Dioxide BUN Creatinine Glucose POC Glucose Calcium Lactate Dehydrogenase Total Protein Ur Specific [place] 1.045 H Urine WBC (Auto) 36.0 H Crossmatch 06/26/20 06/26/20 06/26/20 15:40 19:24 19:24 WBC RBC Hgb Hct MCHC RDW 17.9 H Plt Count Lymph % (Auto) 45.5 H [place] % (Auto) 8.4 H Seg Neuts % (Manual) Lymphocytes % (Manual) Lymphocytes # (Manual) PT INR APTT Fibrinogen Sodium Potassium Chloride 108.9 H Carbon Dioxide 20 L BUN 8 L Creatinine 0.7 L Glucose 115 H POC Glucose Calcium Lactate Dehydrogenase 525 H Total Protein 5.6 L Ur Specific [place] Urine WBC (Auto) Crossmatch 06/27/20 06/27/20 06/27/20 05:14 05:14 05:14 WBC RBC Hgb Hct MCHC 35 H RDW 18.1 H Plt Count Lymph % (Auto) [place] % (Auto) Seg Neuts % (Manual) Lymphocytes % (Manual) Lymphocytes # (Manual) PT INR APTT Fibrinogen 209 L Sodium Potassium Chloride 110.6 H Carbon Dioxide BUN Creatinine 0.7 L Glucose POC Glucose Calcium Lactate Dehydrogenase Total Protein 5.6 L Ur Specific [place] Urine WBC (Auto) Crossmatch Assessment and Plan 1. Clinically improving Confusion , underlying Seizure cannot be clinically excluded . 2. Reviewed Chart. 3. Patient needs to be restarted on all Home Medications especially AEDS since risk of recurrance of seizures are very high with underlying issues . 4. Patient needs a close follow up with Psychiatry - and Neurology . 5. EEG is recommended 6. Reviewed CT Brain . Dr. Benz
--- NOTE | 2020-06-27 21:21 | Event Note ---
Date: 06/27/20 PATIENT NOTED TO BE COMBACTIVE AND AGITATED THIS TIME AND FIGHTING THE NURSES ON DUTY. PLAN; 1. I.M HALDOL 5MG 2. MENTAL HEALTH CONSULT 3. CONTINUE I.V ATIVAN PRN AGITATION AND ANXIETY PREVIOUSLY SCHEDULED.
[2020-06-28 08:30] VITALS: BP 120/78
[2020-06-28] MEDS ORDERED: levoFLOXacin 500 MG TAB PO SCH (10:00)
[2020-06-28] MEDS: TOPIRAMATE TAB 25 MG TAB PO SCH (10:11)
[2020-06-28] MEDS: lamoTRIgine 25 MG TAB PO SCH (10:11)
[2020-06-28] MEDS: PANTOPRAZOLE 20 MG TAB PO SCH (10:11)
--- NOTE | 2020-06-28 10:11 | Discharge Summary ---
Providers - Providers Date of Admission: 06/26/20 16:42 Date of discharge: 06/28/20 Attending physician: CRISTINA CORADO MD 06/27/20 04:27 Consult to Physician [CONS] Routine Comment: noted/ damon Consulting Provider: NARCISO MOJICA Physician Instructions: Reason For Exam: ICU ADMISSION FOR STATUS EPILEPTICUS 06/27/20 04:29 Consult to Physician [CONS] Routine Comment: Consulting Provider: ALIX SOLARES Physician Instructions: Reason For Exam: STATUS EPILEPTICUS 06/27/20 21:13 Consult to Mental Health [CONS] Routine Reason For Exam: AGITATION/COMBACTIVE Primary care physician: ENVIRONMENTAL SERVICES LEAD Hospitalization Reason for admission: pseudoseizures, SVT Condition: Stable Hospital course: History of present illness: 25 YO Male with Seizure Disorder, SVT, on the Autism spectrum presents to ED for evaluation. Pt reports " I was on the table and they brought me here". Patient has diminished cognition and provides minimal history. Patient history taken from EMS staff, ED staff, as well as the patient. The patient reports that he has "SVT", and was sent to the hospital. Patient also reports 30 pound weight loss in the past 1 month. EMS was notified by the [facility] staff and upon arrival the patient was found to be in SVT with a heart rate in the 180s. Patient treated with adenosine with normalization of patient heart rate. Patient transported to [facility] for further care and evaluation of the aforementioned symptoms. The patient was seen and evaluated in the emergency department. All lab and imaging studies reviewed. Patient found to have SVT with normalization of heart rate, as well as pancytopenia. Cardiology team consulted in ED. Hematology/oncology team consulted in ED as well. Patient denies fever, chills, chest pain, palpitation, productive cough, skin rash, recent ill contacts, or known exposure to COVID-19. No prior admission for review. All medication listed at time of admission has been reconciled. Hospital course This is a 25-year-old male with psychogenic nonepileptic seizures, SVT, reactive attachment disorder and on the autism spectrum who presented to the ED on 06/26 for SVT and self-reported 30 pound weight loss in the past month. According to documentation patient was given adenosine in the [facility] informatory. Upon arrival to the emergency department patient was found to have SVT with normalization of heart rate as well as pancytopenia. Cardiology and hematology/oncology were consulted the emergency department. 06/27: Patient was noted to have seizures and was given Ativan for seizure which lasted close to 13 minutes then at about 0300 patient was noted to have another seizure for 5 minutes Ativan was given again and then around 0330 patient was noted to have another seizure and a code met was called. Patient received Haldol at this time and was transferred to the unit. SVT Pancytopenia, resolved Elevated INR Psychogenic nonepileptic seizures (per OSH records) Autism spectrum Hyperchloremia Hypotension I get the records from [facility] and he was admitted here twice for pseu doseizures, patient had continuous EEG both occasions and had no seizure. Patient was faking it. His heart rate was controlled and he was on metoprolol before and he was not taking it. And your blood pressure is within normal limit patient discharged back to [facility]. I have discussed with the nurse practitioner from the [facility]. Patient's blood work was normal. Yesterday his blood pressure was low and was given IV fluids and corrected. Patient has pyuria and I put him on empiric Levaquin for 3 days. Patient was hemodynamically stable at time of discharge. Disposition: TO HOME OR SELFCARE Final Discharge Diagnosis (Prints w/discharge instructions): pseudoseizure Time spent for discharge: 32 minutes - Discharge Diagnoses (1) Pseudoseizures Status: Chronic (2) SVT (supraventricular tachycardia) Status: Acute Core Measure Documentation - Palliative Care Palliative Care/ Comfort Measures: Not Applicable - Core Measures Any of the following diagnoses?: none Exam - Physical Exam Narrative exam: Not in cardiopulmonary distress. The patient appeared well nourished and normally developed. Vital signs as documented. Head exam is unremarkable. No scleral icterus . Neck is without jugular venous distension, thyromegaly, or carotid bruits. Lungs are clear to auscultation. Cardiac exam reveals regular rate and Rhythm. Abdominal exam reveals normal bowel sounds, nontender, no organomegaly. Extremities are nonedematous and both femoral and pedal pulses are normal. SHELTER SUPERVISOR: Alert and oriented 3. Sleepy. - Constitutional Vitals: Temp Pulse Resp BP Pulse Ox 97.7 F 87 18 120/78 97 06/28/20 07:58 06/28/20 07:58 06/28/20 07:58 06/28/20 07:58 06/28/20 07:58 Plan Activity: no restrictions Weight Bearing Status: Full Weight Bearing Diet: regular Follow up with: PRIMARY CARE, [Primary Care Provider] - 3-5 Days Prescriptions: levoFLOXacin [Levaquin TAB] 500 mg PO Q24HR #3 tablet
== END 2020-06-28 11:45 | disposition home or self-care (01) | DRG 309 ==
LOC: ED 07:59 → 4A 16:42 → EEVIPCON 16:42 → CC1 06-27 03:54 → 4A 06-27 18:23
PROVIDERS: ADMIT Internal Medicine; ATTEND Internal Medicine
DX: I47.1 Supraventricular tachycardia (principal); D61.818 Other pancytopenia; R79.1 Abnormal coagulation profile; D64.9 Anemia, unspecified; G40.909 Epilepsy, unspecified, not intractable, without status epilepticus; E87.8 Other disorders of electrolyte and fluid balance, not elsewhere classified; I95.9 Hypotension, unspecified; Z79.899 Other long term (current) drug therapy; Z88.1 Allergy status to other antibiotic agents; Z88.8 Allergy status to other drugs, medicaments and biological substances
CPT/HCPCS: 36415; 70450; 71045; 74177; 80048; 80053; 81001; 82962; 83615; 84443; 84484; 85007; 85025; 85045; 85384; 85610; 85730; 86850; 86870; 86900; 86901; 86920; 87086; 87116; 93005; 96361; 96374; G0378; J1630; J2060; J7030; J7040; J7120; Q9967; U0003